=== PATIENT | female | born 2000 | race Caucasian/White ===

== ENCOUNTER 2022-06-10 17:18 | Outpatient (REF) | payer OTHER, SELFPAY ==
[2022-06-10 18:16] LABS: Hematocrit 41.6 % (33.0-51.0); Hemoglobin* 13.9 gm/dL (12.0-16.0); Mean Corpuscular HGB Conc 33 gm/dL (32-36); Mean Corpuscular Hemoglobin 32 pg (26-34); Mean Corpuscular Volume 95 fL (80-100); Platelet Count* 249 K/uL (140-440); Red Blood Count 4.38 m/uL (4.00-5.20)
[2022-06-10 18:17] LABS: Slide Review Reflex No
[2022-06-10 18:30] LABS: Chloride* 102 mmol/L (96-114); Sodium* 141 mmol/L (135-149)
[2022-06-10 18:31] LABS: Potassium* 4.4 mmol/L (3.6-5.1)
[2022-06-10 18:33] LABS: Alkaline Phosphatase* 56 U/L (40-150); Aspartate Amino Transferase* 22 U/L (12-35); Bilirubin Total* 0.3 mg/dL (0.1-1.5); Blood Urea Nitrogen* 17 mg/dL (5-24); Carbon Dioxide* 29 mmol/L (20-32); Creatinine* 0.7 mg/dL (0.5-1.5); Estimated Glomerular Filt Rate 127 ml/min; Total Protein* 7.3 g/dL (6.0-8.3)
[2022-06-10 18:34] LABS: Alanine Aminotransferase* 15 U/L (4-35); Calcium* 9.6 mg/dL (8.4-10.6); Glucose* 89 mg/dL (60-115)
[2022-06-10 18:42] LABS: HCG Qualitative Serum* Negative (Negative)
[2022-06-10 18:53] LABS: Erythrocyte SedimentationRate* 3 mm/hr (2-20)
[2022-06-12 13:03] LABS: Estradiol Premenol Female 53 pg/mL
[2022-06-12 13:30] LABS: DHEAS 353 ug/dL (148-407); Follicle Stimulating Hormone 7.6 IU/L; Luteinizing Hormone, Serum 3.7 IU/L
[2022-06-12 20:10] LABS: Immunoglobulin A 140 mg/dL (68-408)
[2022-06-13 14:54] LABS: Tissue Transglutaminase Ab IgG <2 U/mL (0-5)
[2022-06-18 08:12] LABS: 17-Hydroxyprogesterone HPLC 29.16 ng/dL (<=206.00)
[2022-06-18 14:25] LABS: Sex Hormone Binding Globulin 58 nmol/L (25-122); Testosterone, Free LC-MS/MS 2.9 pg/mL (0.8-7.4); Testosterone, LC-MS/MS 25 ng/dL (9-55)
== END 2022-06-10 17:19 | disposition home or self-care (01) ==
LOC: LAB 17:18
DX: N92.6 Irregular menstruation, unspecified (principal); R10.2 Pelvic and perineal pain
CPT/HCPCS: 36415; 80053; 82627; 82670; 82784; 83001; 83002; 83498; 84270; 84402; 84403; 84443; 84703; 85027; 85651; 86364

== ENCOUNTER 2022-06-15 14:43 | Outpatient (CLI) | payer OTHER, SELFPAY ==
--- NOTE | 2022-06-15 15:00 | CRLHL7_ITS ---
For Patients: As a result of the Century Cures Act, medical imaging exams and procedure reports are released immediately into your electronic medical record. You may view this report before your referring provider. If you have questions, please contact your health care provider. INDICATION: Irregular menses, amenorrhea TECHNIQUE: Ultrasound pelvis transabdominal and transvaginal for better assessment or to better visualize the endometrium. Real time sonographic images with Spectral and color Doppler imaging of the ovaries were obtained. COMPARISON: None FINDINGS: Uterus: 6.7 centimeter x 2.3 centimeter x 3.8 centimeter. Normal echotexture of the myometrium. No masses. Endometrium: Transvaginal imaging was performed to better evaluate the endometrium. 4 millimeter in thickness. No sign of endometrial mass or fluid. Right ovary: 3.8 centimeter x 2.4 centimeter x 2.2 centimeter. No ovarian or adnexal masses. Normal arterial and venous blood flow. Left ovary: 3.1 centimeter x 2.2 centimeter x 1.9 centimeter. No ovarian or adnexal masses. Normal arterial and venous blood flow. Cul-de-sac: No significant free fluid. IMPRESSION: Unremarkable pelvic ultrasound. Dictated by Marquis Malone MD @ 06/15/2022 5:20:01 PM (Electronically Signed)
== END 2022-06-15 14:44 | disposition home or self-care (01) ==
PROVIDERS: Referring Provider Pediatrics
DX: N92.6 Irregular menstruation, unspecified (principal); R10.2 Pelvic and perineal pain
CPT/HCPCS: 76830; 76856

== ENCOUNTER 2022-07-22 13:59 | Outpatient (CLI) | payer OTHER, SELFPAY ==
[2022-07-25 13:47] LABS: Prolactin 7.8 ng/mL (2.8-29.2)
== END 2022-07-22 14:00 | disposition home or self-care (01) ==
DX: N92.6 Irregular menstruation, unspecified (principal)
CPT/HCPCS: 36415; 84146